=== PATIENT | female | born 1995 | race Caucasian/White ===

== ENCOUNTER 2017-09-10 05:19 | Emergency (ER) | payer BC ==
--- NOTE | 2017-09-10 05:27 | EDPHY ---
H & P HPI/ROS: HPI CHIEF COMPLAINT: Suicidal ideation, ibuprofen overdose HISTORY OF PRESENT ILLNESS: Patient is a 22-year-old female, history of depression but does not take any daily medication for this, she presents emergency room after she text a [employer] hotline that she took too much ibuprofen was having thoughts of harming herself. No real specific plan. The [facility] health hotline was able to find out where her phone was located and sent it ambulance and police to her house. She now presents emergency room by ambulance. She does tell me she feels depressed. She does state that she has thoughts of harm but no specific plan. No history of bipolar disorder. She does have a history of depression. Not medicated. Patient states that she took approximately 10-15 200 mg ibuprofen over the course of today. She states mainly she took this for headache. Denies any other ingestion Past Medical History: Depression Past Surgical History: No significant surgical history Social History: 2 shots of liquor this evening. Denies drugs. Alcohol this evening. Denies daily use tobacco. Family History: Noncontributory ROS REVIEW OF SYSTEMS: A comprehensive 10 point review of systems is otherwise negative aside from elements mentioned in the history of present illness. Exam Constitutional flat affect, triage nursing summary reviewed, vital signs reviewed, awake/alert. Eyes normal conjunctivae and sclera, EOMI, PERRLA. HENT normal inspection, atraumatic, moist mucus membranes, no epistaxis, neck supple/ no meningismus, no raccoon eyes. Respiratory clear to auscultation bilaterally, normal breath sounds, no respiratory distress, no wheezing. Cardiovascular rate normal, regular rhythm, no murmur, no edema, distal pulses normal. Gastrointestinal soft, non-tender, no rebound, no guarding, normal bowel sounds, no distension, no pulsatile mass. Genitourinary no CVA tenderness. Musculoskeletal no midline vertebral tenderness, full range of motion, no calf swelling, no tenderness of extremities, no meningismus, good pulses, neurovascularly intact. Skin pink, warm, & dry, no rash, skin atraumatic. Neurologic awake, alert and oriented x 3, AAOx3, moves all 4 extremities equally, motor intact, sensory intact, CN II-XII intact, normal cerebellar, normal vision, normal speech. Psychiatric flat affect Heme/Lymph/Immune no lymphadenopathy. Differential Diagnosis: Includes but is not limited to in a particular order, ibuprofen overdose, suicidal ideation, depression, mood disorder, bipolar disorder Medical Decision Making: Plan for this patient blood draw for medical clearance , check serum alcohol level, check kidney function, patient is not on M1 hold and does have police at bedside. They would like to take her to long term after being medically cleared. She has a warrant for her arrest for domestic violence. They will place her on suicide precautions in long term. Re-evaluation: 623: Patient is medically cleared to go to long term. I do not feel that she needs an M1 hold at this time. She will go to long term on suicide watch. Source: Patient, Police, EMS Constitutional: Initial Vital Signs Temperature (C) 37 C 09/10/17 05:53 Heart Rate 79 09/10/17 05:53 Respiratory Rate 18 09/10/17 05:53 Blood Pressure 127/86 H 09/10/17 05:53 O2 Sat (%) 94 09/10/17 05:53 O2 Delivery Mode Room Air Allergies/Adverse Reactions: No Known Allergies Allergy (Unverified 09/10/17 06:18) Home Medications: Medication Instructions Recorded NK [No Known Home Meds] 09/10/17 Medical Decision Making - Data Points Laboratory Results: Laboratory Results 09/10/17 05:35 09/10/17 05:35 09/10/17 09/10/17 09/10/17 05:35 05:35 05:35 WBC RBC Hgb Hct MCV MCH MCHC RDW Plt Count MPV Neut % (Auto) Lymph % (Auto) [place] % (Auto) Eos % (Auto) Baso % (Auto) Nucleat RBC Rel Count Absolute Neuts (auto) Absolute Lymphs (auto) Absolute Monos (auto) Absolute Eos (auto) Absolute Basos (auto) Absolute Nucleated RBC Immature Gran % Immature Gran # Sodium 146 mEq/L H mEq/L (135-145) Potassium 3.3 mEq/L L mEq/L (3.5-5.2) Chloride 109 mEq/L mEq/L (97-110) Carbon Dioxide 22 mEq/l mEq/l (22-31) Anion Gap 15 mEq/L mEq/L (8-16) BUN 14 mg/dL mg/dL (7-23) Creatinine 0.8 mg/dL mg/dL (0.6-1.0) Estimated GFR > 60 Glucose 90 mg/dL mg/dL (70-100) Calcium 9.5 mg/dL mg/dL (8.5-10.4) Beta HCG, Qual NEGATIVE Salicylates < 1.0 mg/dL L mg/dL (2.0-20.0) Urine Opiates Screen NEGATIVE (NEGATIVE) Acetaminophen < 10 mcg/mL L mcg/mL (10-30) Urine Barbiturates NEGATIVE (NEGATIVE) Ur Phencyclidine Scrn NEGATIVE (NEGATIVE) Ur Amphetamine Screen NEGATIVE (NEGATIVE) U Benzodiazepines Scrn NEGATIVE (NEGATIVE) Urine Cocaine Screen NEGATIVE (NEGATIVE) U Marijuana (THC) Screen NON-NEGATIVE H (NEGATIVE) Ethyl Alcohol 19 mg/dL H mg/dL (0-10) 09/10/17 05:35 WBC 6.66 10^3/uL 10^3/uL (3.80-9.50) RBC 4.42 10^6/uL 10^6/uL (4.18-5.33) Hgb 13.5 g/dL g/dL (12.6-16.3) Hct 38.7 % % (38.0-47.0) MCV 87.6 fL fL (81.5-99.8) MCH 30.5 pg pg (27.9-34.1) MCHC 34.9 g/dL g/dL (32.4-36.7) RDW 13.1 % % (11.5-15.2) Plt Count 336 10^3/uL 10^3/uL (150-400) MPV 9.2 fL fL (8.7-11.7) Neut % (Auto) 50.6 % % (39.3-74.2) Lymph % (Auto) 40.2 % % (15.0-45.0) [place] % (Auto) 6.6 % % (4.5-13.0) Eos % (Auto) 1.5 % % (0.6-7.6) Baso % (Auto) 0.9 % % (0.3-1.7) Nucleat RBC Rel Count 0.0 % % (0.0-0.2) Absolute Neuts (auto) 3.37 10^3/uL 10^3/uL (1.70-6.50) Absolute Lymphs (auto) 2.68 10^3/uL 10^3/uL (1.00-3.00) Absolute Monos (auto) 0.44 10^3/uL 10^3/uL (0.30-0.80) Absolute Eos (auto) 0.10 10^3/uL 10^3/uL (0.03-0.40) Absolute Basos (auto) 0.06 10^3/uL 10^3/uL (0.02-0.10) Absolute Nucleated RBC 0.00 10^3/uL 10^3/uL (0-0.01) Immature Gran % 0.2 % % (0.0-1.1) Immature Gran # 0.01 10^3/uL 10^3/uL (0.00-0.10) Sodium Potassium Chloride Carbon Dioxide Anion Gap BUN Creatinine Estimated GFR Glucose Calcium Beta HCG, Qual Salicylates Urine Opiates Screen Acetaminophen Urine Barbiturates Ur Phencyclidine Scrn Ur Amphetamine Screen U Benzodiazepines Scrn Urine Cocaine Screen U Marijuana (THC) Screen Ethyl Alcohol Departure - Departure Disposition: Law Enforcement/Court/[facility] Clinical Impression: Depression Qualifiers: Depression Type: unspecified Qualified Code(s): F32.9 - Major depressive disorder, single episode, unspecified Condition: Fair Instructions: Depression (ED) Referrals: Patient,NotPresent [Primary Care Provider] - As per Instructions
[2017-09-10 05:49] LABS: PLATELET COUNT 336 10^3/uL (150-400)
[2017-09-10 07:03] VITALS: BP 121/77; PULSE 74; RESP 16; TEMP 97.9; O2SAT 96
== END 2017-09-10 07:03 ==
DX: F32.9 Major depressive disorder, single episode, unspecified (principal)
CPT/HCPCS: 80305; G0480